=== PATIENT | male | born 1960 | race Caucasian/White ===

== ENCOUNTER 2019-12-02 13:01 | Emergency (ER) | payer MEDICARE, SELFPAY ==
--- NOTE | ~2019-12-02 | XR_ITS ---
XR chest 2V DATE: 12/02/2019 14:01 INDICATION: Weakness. Falls. TECHNIQUE: AP and lateral views COMPARISON: 03/10/2018 portable AP chest FINDINGS: Cardiomegaly. Aortic arch calcification. No pulmonary infiltrate or consolidation, pleural effusion or pulmonary vascular congestion or pneumo thorax is detected. IMPRESSION: Cardiomegaly Aortic atherosclerosis No active pulmonary disease Reviewed, dictated and finalized at location A.
--- NOTE | ~2019-12-02 | CT_ITS ---
EXAMINATION: CT brain wo con DATE: 12/02/2019 14:09 INDICATION: Fall. Dizziness. TECHNIQUE: Computed tomography (CT) of the head was performed without intravenous contrast. The mA wa s adjusted according to patient size. Iterative reconstruction technique was employed. Exam dose: 60 5.33 mGy-cm total exam DLP. COMPARISON: None FINDINGS: There is cerebellar and cerebral cortical volume volume loss . 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 No intracranial mass lesion or hemorrhage, midline shift or mass effects is detected. No subdural or epidural hematoma. There is cerebral atherosclerosis. There is nonspecific diminished attenuation of the cerebral white matter, likely due to chronic small vessel ischemic changes. No orbital mass lesion is evident. No fracture or bone destruction of the cranial vault. The included paranasal sinuses and mastoid air cells are normally developed and aerated. IMPRESSION: Old left cerebellar hemispheric infarct Cerebellar and cerebral atrophy No acute intracranial finding Reviewed, dictated and finalized at [facility]. Reviewed, dictated and finalized at location [facility].
--- NOTE | ~2019-12-02 | CT_ITS ---
EXAMINATION: CT abdomen pelvis w con INDICATION: Pancreatitis TECHNIQUE: Computed tomographic images of the abdomen and pelvis were obtained after the administrati on of 100 cc of Omnipaque 350 intravenous contrast. The dose-length product (DLP) was 207.16 mGy-cm. Automated exposure control and iterative reconstruction technique were employed. COMPARISON: 08/04/2017 FINDINGS: There is small pleural effusions, left greater than right. Mild emphysema is noted in the v isualized lung bases. There is dependent atelectasis. The heart size is normal. Calcified coronary ar sania atherosclerosis is noted. The liver is diffusely low in attenuation when compared with the splee n, consistent with hepatic steatosis. There is heterogeneous attenuation throughout much of the splee n involving greater than 50% of the subcapsular surface. The pancreas demonstrates heterogeneous enha ncement. There is a 2.5 x 1.9 cm cystic lesion in the head of the pancreas. A 5.5 x 1.0 cm fluid treva ection is seen near the tail of the pancreas. There are multiple additional fluid collections near th e body of the pancreas, posterior to the stomach fundus, and in the left anterior perirenal space. A small volume of ascites is seen in the paracolic gutters and pelvis. The gallbladder and right adrena l gland are unremarkable. There is mild chronic enlargement of the left adrenal gland which maintains its adreniform shape. Cysts of the kidneys measure up to 2.4 cm on the right. There is calcified ath erosclerosis of the aorta and many of the other arteries. No pathologically enlarged abdominal or pel ralph lymph nodes are identified. There is no free intraperitoneal gas or evidence of bowel obstruction . There is mild lumbar spondylosis. There is a diverticulum of the left posterolateral bladder wall. IMPRESSION: 1. Findings suggestive of acute necrotizing pancreatitis with sterile acute necrotic collections in t he head of the pancreas and near the tail of the pancreas. 2. Diffuse heterogeneous enhancement of the spleen concerning for hematoma. According to my discussio n with Dr. Shane in the emergency department, patient reportedly had a fall prior to presentatio n which raises concern for grade III splenic injury. Reviewed, dictated and finalized at location A. IMPRESSION: 1. Findings suggestive of acute necrotizing pancreatitis with sterile acute nec rotic collections in the head of the pancreas and near the tail of the pancreas . 2. Diffuse heterogeneous enhancement of the spleen concerning for hematoma. Acc ording to my discussion with Dr. Shane in the emergency department, patiolga t reportedly had a fall prior to presentation which raises concern for grade II I splenic injury.
--- NOTE | 2019-12-02 13:05 | ECG_ITS ---
Measurements Intervals [place] Rate: 101 P: 53 UT: 114 QRS: 54 QRSD: 121 T: 87 QT: 379 QTc: 491 Interpretive Statements SINUS TACHYCARDIA WITH SHORT UT INTERVAL DELAYED PRECORDIAL R/S TRANSITION MINIMAL Q WAVES- INFERIOR LEADS ST-T WAVE ABNORMALITY IN LATERAL LEADS- CONSIDER ISCHEMIA BASELINE ARTIFACT- I, II, III, AVR, AVL, AVF ABNORMAL ECG Electronically Signed On 12-02-2019 14:50:57 CDT by Alvin Felix D.O.
[2019-12-02 13:07] VITALS: BP 80/61; PULSE 117; RESP 26; TEMP 36.4; O2SAT 98
--- NOTE | 2019-12-02 13:16 | PC.NURSE ---
Pt triaged in RM 18, this RN feels pt is in need of cardiac monitoring. Spoke to Ansley RN - ED Charge, pt moved at this time to RM 7 w/ monitor applied.
[2019-12-02 13:22] VITALS: PULSE 103
--- NOTE | 2019-12-02 13:22 | PC.NURSE ---
multiple attempts for lab draw unsuccessful
[2019-12-02 13:39] LABS: Glucose Point of Care 240 (65-105)
--- NOTE | 2019-12-02 13:42 | ED.WEAKNESS ---
HPI - Weakness General Chief complaint: Weakness Stated complaint: WEAKNESS Time Seen by Provider: 12/02/19 13:33 Source: patient Mode of arrival: EMS Limitations: no limitations History of Present Illness HPI Narrative: Patient is a 59-year-old male who presents to the emergency department with generalized weakness, dizziness, and fall. Patient states he has been feeling weak and dizzy the past day or so and fell today. Patient denies any specific complaints. He is denying any chest pain, shortness of breath, nausea, vomiting, diarrhea, abdominal pain, or fever. He reports a cough that he attributes to chronic smoking. Complaint: generalized weakness Onset (ago): day(s) (1) Duration: constant Location: generalized Associated symptoms: denies other symptoms Related Data Home Medications Medication Instructions Recorded Confirmed atorvastatin 12/02/19 12/02/19 lisinopril 12/02/19 metoprolol succinate PO 12/02/19 spironolactone 12/02/19 Allergies Allergy/AdvReac Type Severity Reaction Status Date / Time No Known Allergies Allergy Unverified 03/08/18 17:43 Review of Systems Review of Systems: All systems reviewed & are unremarkable except as noted in HPI and below Constitutional: Constitutional: Denies fever(s) and Reports weakness Cardiovascular: Cardiovascular: Denies chest pain Respiratory: Respiratory: Reports cough (Chronic smokers) and Denies dyspnea Gastrointestinal: Gastrointestinal: Denies abdominal pain, Denies melena, Denies hematochezia, Denies diarrhea, Denies nausea and Denies vomiting PMFSH Past Medical History Medical History (Updated 12/02/19 @ 17:12 by Sophie Shane MD) Anemia Atrial fibrillation COPD (chronic obstructive pulmonary disease) Coronary artery disease Hyperlipidemia Hypertension Systolic CHF Surgical History Surgical History (Updated 12/02/19 @ 13:48 by Sophie Shane MD) History of cardiac catheterization Family History Family History (Updated 03/21/18 @ 12:41 by DOCTOR UNKNOWN) Father Hypertension Mother Hypertension Family history of malignant neoplasm of breast in first degree relative Social History Social History (Updated 12/02/19 @ 13:49 by Sophie Shane MD) Smoking status: Current every day smoker Alcohol intake: current Alcohol use details: Several beers daily Gender identity (if verbalized by the patient): Male Exam Const: General: cooperative, alert and ill appearing acutely Nutritional Appearance: thin Orientation/consciousness: patient oriented x3 Limitations: no limitations HENMT: Mouth: Yes lip normal and Yes dry mucous membranes Resp: Effort & Inspection: normal respiratory effort Auscultation: clear to auscultation bilaterally Cardio: Rate: regular rate Rhythm: regular rhythm GI: GI Palp: Yes Soft to palpation and No Tenderness to palpation present (GI) Auscultation: normal bowel sounds Skin: General skin exam: dry skin, pallor and other (Scattered ecchymosis on arms) Wounds: wounds noted (Chronic left lower extremity wound) Neuro: General: patient oriented x3 Cognition (Neuro): normal cognition Speech: normal speech Extrem: General: normal to inspection, full ROM and no clubbing, cyanosis or edema Psych: Mental Status: mental status grossly normal Affect: normal affect Attitude: cooperative Course Course Emergency Course: Patient presented to the emergency department with reports of weakness and dizziness and a fall at home. Patient was alert and appropriate on arrival and denying any injury or pain. Patient specifically denying abdominal pain and did not have any abdominal tenderness on examination. Patient does have history of alcohol abuse noted in his past visits and does admit to drinking several beers a day. Patient notably hypotensive and pale and ill in appearance on initial arrival. Extensive evaluation initiated as to cause of symptoms. Patient found to have
[2019-12-02] MEDS: LACTATED RINGERS 1,000 ML 999 ML IV CONT ×2 (13:43)
--- NOTE | 2019-12-02 13:44 | PC.NURSE ---
Called lab for Mg, CK, C-reactive protein, and lipase.
[2019-12-02 13:47] LABS: Hematocrit 27.7 % (42.0-52.0); Hemoglobin 8.9 g/dL (14.0-18.0); Mean Corpuscular HGB Conc 32.1 g/dl (32-36); Mean Corpuscular Hemoglobin 31.6 pg (26-34); Mean Corpuscular Volume 98.2 fl (80-100); Mean Platelet Volume 11.6 fl (7.4-10.4); Platelet Count Result 262 k/mm3 (150-375); Red Blood Count 2.82 M/mm3 (4.6-6.20); White Blood Count 19.2 K/mm3 (4.5-10.0)
[2019-12-02 13:58] LABS: INR 1.1; Prothrombin Time 14.3 Seconds (11.1-14.7)
[2019-12-02 13:59] LABS: Partial Thromboplastin Time 27.7 SECONDS (22.3-36.8)
[2019-12-02 14:01] LABS: Alanine Aminotransferase 48 U/L (4-50); Albumin Level 3.6 g/dL (3.5-5.1); Alkaline Phosphatase 148 U/L (38-126); Aspartate Amino Transferase 93 U/L (17-59); Bilirubin,Total 1.2 mg/dL (0.2-1.3); Blood Urea Nitrogen 37 mg/dL (9-20); Carbon Dioxide 16 mmol/L (22-30); Chloride 97 mmol/L (98-107); Estimated CRCL calculation 38 ml/min; Estimated Glomerular Filt Rate 48; Glucose 244 mg/dL (75-110); Lactic Acid Reflex 5.9 mmol/L (0.7-2.1); Potassium 3.5 mmol/L (3.4-5.0); Sodium 132 mmol/L (137-145)
[2019-12-02 14:03] LABS: Band Neutrophils Percent 24 % (0-6); Lymphocytes Absolute Manual 0.19 K/mm3 (1.1-4.5); Monocytes Absolute Manual 1.72 K/mm3 (0.1-0.90); Monocytes Percent Manual 9 % (3-9); Neutrophils Absolute Manual 17.28 K/mm3 (1.3-6.7); Neutrophils Percent Manual 66 % (46-73); Platelet Estimate Adequate (Adequate); Total Cells Counted 100
[2019-12-02 14:08] LABS: Magnesium 2.1 mg/dL (1.6-2.3)
[2019-12-02 14:12] LABS: Alveolar/Arterial O2 Gradient 26.4 mmHg; Base Excess ABG -7.9 mEq/l (+/-2.0); Carboxyhemoglobin 0.4 % THb (0-2.0); Fractional Inspired Oxygen 21 %; HCO3 ABG 15.8 mEq/l (22.0-26.0); Methemoglobin ABG 0.3 %THb (0-1.5); Oxygen Content ABG 11.7 %vol (16.0-22.0); Oxygen Saturation ABG 97.2 % (95.0-100.0); Oxyhemoglobin 95.2 % THb (90.0-100.0); PCO2 ABG 26.2 mmHg (35.0-45.0); PO2 FiO2 Ratio Arterial Blood 4.38 %; Reduced Hemoglobin 4.1 %THb (0-5.0); Total Hemoglobin 8.6 g/dL (12.0-18.0); pH ABG 7.399 (7.350-7.450)
[2019-12-02 14:13] LABS: Device ROOM AIR; Site Drawn RIGHT BRACHIAL
[2019-12-02 14:16] VITALS: BP 109/66; PULSE 91; RESP 30; O2SAT 95
[2019-12-02 14:17] LABS: Troponin I 0.014 ng/mL (0.000-0.034)
[2019-12-02 14:19] LABS: Creatine Kinase 28 U/L (55-170)
[2019-12-02 15:03] LABS: CRP 39.9 mg/dL (<1.0); Lipase 5706 U/L (23-300)
[2019-12-02 15:29] LABS: Thyroid Stimulating Hormone Reflex 0.616 uIU/mL (0.465-4.68)
[2019-12-02 16:40] LABS: Add Urine Microscopic? YES; Amorphous Sediment Urine Few; Appearance Urine Clear (Clear); Bilirubin Urine Negative (Negative); Blood Urine Negative (Negative); Color Urine Yellow (Yellow); Glucose Urine UA Negative (Negative); Ketones Urine Negative (Negative); Leukocyte Esterase Ur Negative LEU/UL (Negative); Mucus Urine Rare /lpf; Nitrate Urine Negative (Negative); Protein Urine 1+ mg/dL (Negative); RBC Urine 0-2 /hpf (0-2); Specific Grav Ur 1.025 (1.001-1.035)
[2019-12-02 16:44] LABS: Reflex Lactic Acid Yes or No Add Lactic
[2019-12-02 16:51] VITALS: BP 117/66; PULSE 104; RESP 38; O2SAT 100
--- NOTE | 2019-12-02 17:20 | PC.NURSE ---
[facility] declined transfer to [facility] accepted ETA 30min TRIP# [id number]
[2019-12-02 17:58] LABS: Lactic Acid 2.1 mmol/L (0.7-2.1)
== END 2019-12-02 18:18 | disposition short-term general hospital (02) ==
PROVIDERS: Emergency Provider Emergency Medicine; PCP Family Medicine
DX: K85.91 Acute pancreatitis with uninfected necrosis, unspecified (principal); S36.029A Unspecified contusion of spleen, initial encounter; D64.9 Anemia, unspecified; I48.91 Unspecified atrial fibrillation; J44.9 Chronic obstructive pulmonary disease, unspecified; I50.20 Unspecified systolic (congestive) heart failure; I11.0 Hypertensive heart disease with heart failure; E78.5 Hyperlipidemia, unspecified; R00.0 Tachycardia, unspecified; R94.31 Abnormal electrocardiogram [ECG] [EKG]; F17.200 Nicotine dependence, unspecified, uncomplicated; W19.XXXA Unspecified fall, initial encounter
CPT/HCPCS: 36415; 36600; 70450; 71046; 74177; 80053; 81001; 82375; 82550; 82805; 82948; 83050; 83605; 83690; 83735; 84443; 84484; 85025; 85610; 85730; 86140; 86850; 86900; 86901; 87040; 87077; 87086; 87088; 87186; 93005; 96361; 96365; 99285; J2543; J7120; Q9967